=== PATIENT | female | born 1975 | race Caucasian/White ===

== ENCOUNTER 2019-09-30 17:34 | Emergency (ER) | payer MEDICAID ==
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
== END 2019-09-30 18:50 | disposition home or self-care (01) ==
LOC: ER 17:34
DX: S05.12XD Contusion of eyeball and orbital tissues, left eye, subsequent encounter (principal); G44.319 Acute post-traumatic headache, not intractable; F07.81 Postconcussional syndrome; F17.210 Nicotine dependence, cigarettes, uncomplicated; X58.XXXD Exposure to other specified factors, subsequent encounter
CPT/HCPCS: 70450; 99284